=== PATIENT | male | born 1950 | race African-American/Black ===

== ENCOUNTER 2019-07-05 13:19 | Inpatient (IN) | payer OTHER, BC ==
[2019-07-05 06:59] VITALS: BMI 28.3
--- NOTE | 2019-07-05 08:00 | HP ---
Satellite [facility] - Chief Complaint Chief Complaint: left knee pain - Past Medical History Allergies/Adverse Reactions: Allergies Allergy/AdvReac Type Severity Reaction Status Date / Time No Known Drug Allergies Allergy Verified 07/05/19 06:52 - Current Medications Current Medications: Home Medications Medication Instructions Recorded Diltiazem HCl [Tiazac] 360 mg PO DAILY 02/27/14 Glipizide [Glucotrol] 5 mg PO BID 02/27/14 Losartan Potassium [Cozaar] 100 mg PO DAILY 02/27/14 metFORMIN HCL [Metformin ER 1,000 mg PO BID 02/27/14 Osmotic] Naproxen Sodium [Aleve] 2 tab PO DAILY 07/05/19 Satellite Physical Exam - Physical Examination Vital Signs: Vital Signs Period Temp Pulse Resp BP Sys/Thomas Pulse Ox Last 24 Hr 98.3 F 70 16 145/73 99-99 General Appearance: Well Nourished, Well Developed, Alert & Oriented x3 ENT: Clear Lung: Normal air movement Extremities: Other (left knee- + swelling, + ttp, decr rom, nvi, xrays show grade 4 tricompartmental djd) Neurological: Intact, Alert, Oriented Satellite Impression/Plan - Impression/Plan Impression: left knee djd Operative Procedure: left stephan tkr Date to be Performed: 07/05/19
--- NOTE | 2019-07-05 09:52 | OP ---
Operative Note - Note: Operative Date: 07/05/19 (josue) Pre-Operative Diagnosis: left knee djd Operation: left stephan tkr Post-Operative Diagnosis: Same as Pre-op Surgeon: Elian Viveros Compliance Auditor: Zheng Gardner Anesthesia: Spinal, Local Specimens Removed: bone fragments Estimated Blood Loss (mls): 100
[~2019-07-05 13:19] MED LIST: ACETAMINOPHEN 325 MG TABLET (FP) ONE; BUPIVACAINE LIPOSOME/PF (EXPAREL) 266 MG/20 ML VIAL ONE; CEFAZOLIN 3 GM in DEXTROSE 5%-WATER - 100 ML IVPB ONE; CELECOXIB 200 MG CAPSULE PO ONE; DILTIAZEM HCL 360 MG PO SCH; EPHEDRINE SULFATE/0.9% NACL/PF 50 MG/10 ML SYRINGE NR ONE; LACTATED RINGERS SOLUTION 1,000 ML IV SCH; LIDOCAINE HCL/PF 2% SDV 5ML VIAL ONE; LOSARTAN POTASSIUM 50 MG TABLET (FP) PO SCH; MAG HYDROX/AL HYDROX/SIMETH 30 ML UNIT-DOSE CUP PO PRN; MAGNESIUM HYDROX 2400MG/30ML ORAL SUSPENSION 30 ML CUP PO PRN; MIDAZOLAM HCL 2 MG/2 ML SINGLE DOSE VIAL ONE; MULTIVITAMINS (DAILY MVI) TABLET (FP) PO SCH; ONDANSETRON 4 MG/2 ML VIAL IVPUSH PRN; ONDANSETRON 4 MG/2 ML VIAL ONE; PANTOPRAZOLE 40 MG TABLET PO SCH; PROPOFOL 20 ML ONE; SENNOSIDES/DOCUSATE COMBO (SENNA PLUS) TABLET (UD) PO SCH; SODIUM CHLORIDE 0.9% P/F 10 ML VIAL IJ ONE; SUCCINYLCHOLINE CHLORIDE 200 MG/10 ML SYRINGE ONE; TRANEXAMIC ACID 1000 MG/10 ML VIAL IVPUSH ONE; TRANEXAMIC ACID 1000 MG/10 ML VIAL ONE; VANCOMYCIN 1,000 MG VIAL (RESTRICTED TO ID ONLY) IVPB ONE; VANCOMYCIN 1,000 MG VIAL (RESTRICTED TO ID ONLY) ONE; ceFAZolin SODIUM 1 GM VIAL ONE; oxyCODONE HCL 5 MG TABLET PO PRN
[2019-07-05] MEDS: ACETAMINOPHEN 325 MG TABLET (FP) PO SCH ×2 (13:27→17:11)
--- NOTE | 2019-07-05 13:34 | SPEC ---
DATE OF OPERATION: 07/05/2019 PREOPERATIVE DIAGNOSIS: Degenerative joint disease, left knee. POSTOPERATIVE DIAGNOSIS: Degenerative joint disease, left knee. PROCEDURE: Left total knee replacement with robotic-assisted navigation (Makoplasty). SURGICAL ATTENDING: Elian Viveros MD TEACHER CITIZENSHIP: [place] ANESTHESIA: Regional and spinal. CLOSURE: A Triathlon cemented knee system with a 5 femur, 6 tibia, 9 polyethylene, 38 patella, number 1 Vicryl fascia, 0 and 2-0 subcutaneous, 3-0 Monocryl subcuticular with skin glue, 4-0 undyed Vicryl for pin sites. ESTIMATED BLOOD LOSS: Negligible. COMPLICATIONS: None. CONDITION: To recovery room, stable. DESCRIPTION OF OPERATIVE PROCEDURE: Patient was taken to the operating room on July 05, 2019. Regional and general anesthesia was administered by the anesthesiologist. IV Kefzol and TXA were administered by the anesthesiologist. Well-padded pneumatic tourniquet was placed on the proximal thigh. The left lower extremity was prepped and draped in the usual sterile fashion. The leg was exsanguinated with an Esmarch bandage, and tourniquet was inflated to 275 mmHg. A 12 to 15-cm longitudinal midline incision was incised while centered over the patella. The dissection was carried down to the level of the extensor mechanism with sufficient flaps made to adequately perform the procedure. A medial parapatellar arthrotomy was then performed. We made a cuff of tissue on the patella for later closure. The patella was inverted, the knee was flexed up. The fat pad was excised. The subperiosteal dissection was on the anteromedial proximal tibia around towards the direction of the MCL. The ACL and the PCL were transected and debrided. The meniscal remnants of the medial and lateral meniscus were debrided and removed. This allowed the knee to be able to "be brought forward." The checkpoints were malleted into the tibia and into the femur. Two threaded pins were drilled anteroposteriorly proximal to the knee through the previous incision, through the anterior cortex, then just engaging the posterior cortex. To these pins was assembled the femoral navigation array. One handbreadth below the tibial tubercle, 2 stab incisions were used to drill 2 threaded pins in parallel fashion into the tibia, again through the anterior cortex and just engaging the posterior cortex. To these pins was fastened the tibial arrays. The knee was then registered with the navigation device with center of rotation of the hip, medial and lateral malleoli, both checkpoints, and multiple points on both the femur and the tibia to ensure excellent registration. The navigation device was directed off the "top of the bubbles" on both the femur and the tibia. The navigation passed within less than 0.5 mm to plan. The knee was then thoroughly inspected to remove all osteophytes both medially, laterally, and on the femur and the tibia, and whatever osteophytes were available for dissection. The knee was then taken to extension and to flexion and stressed in both varus and valgus to assess flexion gaps. The virtual position of the components on the navigation device were then manipulated to optimize the position and to ensure equal gaps in both flexion and extension, and both medially and laterally. The robot was then brought into the field and was registered. The cuts were then made both on the femur and on the tibia as to plan. All osteophytes posteriorly were then removed as well. The gaps were then measured again in flexion and extension to be equal in both flexion and extension and medial and laterally. The femoral notch was then made, as we were doing a posterior stabilizing component, with the appropriate sized box. Trial reduction of the femur achieved excellent [id number] fit. A tibial baseplate of appropriate polyethylene thickness was "floated in the knee." It was ensured to be in the excellent position by navigation devices and was pinned in place. The knee was taken through a range of motion and found to have excellent stability throughout flexion and extension. The patella was calibrated for thickness and osteotomized down to the appropriate level. The appropriate lollipop was used to drill the lug holes in the patella and the trial button was applied. The knee was taken through a range of motion and found to have excellent tracking of the patella, and patella from full extension to full flexion. Trial components were removed, the keel was punched and drilled, and a sclerotic bone on the tibia was drilled to help with cement interdigitation. The knee was thoroughly irrigated with the pulse antibiotic recreation engineer. The real components were then cemented in using monitored arrangement cement techniques with antibiotic cement, and pressurization and extension. After the cement was hardened, the knee was thoroughly inspected to remove any extra cement. The real polyethylene component was then clipped into place. Range of motion, stability, and tracking were as described earlier. The checkpoints and the pins were removed. The knee was thoroughly irrigated with antibiotic irrigation. Vancomycin powder was placed into the knee for antibiotic prophylaxis. The medial parapatellar arthrotomy was then closed using number 1 Vicryl interrupted suture. After closure of the deep layer, the knee was taken through a range of motion, and found to have excellent stability of the patella with no dislocation and no undue tension on the repair. The subcutaneous was pulse antibiotic irrigated, and was then closed with 2-0 Vicryl, 3-0 Monocryl subcuticular with the skin glue for the skin. The distal tibial pin site was irrigated thoroughly as well and then closed with 4-0 undyed Vicryl. A sterile Aquacel dressing was applied, followed by a Cardona dressing. Tourniquet was deflated. Total tourniquet time was approximately 75 minutes. No complications. Patient was awakened from anesthesia and transferred to recovery room in stable condition. Postoperative x-rays revealed excellent position of the components. Alberto [id number]
[2019-07-05] MEDS: oxyCODONE HCL 5 MG TABLET PO PRN ×2 (13:58→20:12)
[2019-07-05] MEDS ORDERED: ceFAZolin SODIUM 1 GM VIAL ONE ×2 (14:28→23:40)
[2019-07-05] MEDS ORDERED: DEXTROSE 5%-WATER 100 ML IVPB ONE ×2 (14:29→23:40)
[2019-07-05] MEDS: traMADol HCL 50 MG TABLET PO PRN ×2 (15:26→22:47)
[2019-07-05] MEDS: CEFAZOLIN 3 GM in DEXTROSE 5%-WATER 100 ML IVPB SCH ×2 (15:27→23:46)
[2019-07-05] MEDS: INSULIN SLIDING SCALE (NOVOLOG) 1 VIAL SQ SCH ×3 (16:01→21:48)
[2019-07-05] MEDS: glipiZIDE 5 MG TABLET (FP) PO SCH (17:10)
[2019-07-05] MEDS: MULTIVITAMINS (DAILY MVI) TABLET (FP) PO SCH (17:10)
[2019-07-05] MEDS: PANTOPRAZOLE 40 MG TABLET PO SCH (17:10)
[2019-07-05] MEDS: LOSARTAN POTASSIUM 50 MG TABLET (FP) PO SCH ×2 (17:11→17:35)
--- NOTE | 2019-07-05 17:37 | PN ---
Progress Note, Physician Chief Complaint: L knee Pain S/p L TKR History of Present Illness: Previous notes and events reviewed awake and alert NAD complain of pain to L knee POD #0 L TKR complain of suprapubic pain and difficulty urinating, bladder scan shows urine retention >400cc denies chest pain or SOB noted with elevated BP - Current Medication List Current Medications: Active Medications Acetaminophen (Tylenol -) 650 mg PO Q6H [facility] Stop: 07/08/19 11:59 Last Admin: 07/05/19 17:11 Dose: 650 mg Al Hydroxide/Mg Hydroxide (Mylanta Oral Suspension -) 30 ml PO Q4H PRN PRN Reason: DYSPEPSIA Aspirin (Asa -) 325 mg PO DAILY@0800 [facility] Diltiazem HCl (Cardizem Cd -) 360 mg PO DAILY [facility] Last Admin: 07/05/19 17:11 Dose: 360 mg Fentanyl (Sublimaze Injection -) 50 mcg IVPUSH [id number] PRN PRN Reason: PAIN-PACU ORDER X 4 DOSES ONLY Glipizide (Glucotrol -) 5 mg PO BIDI [facility] Last Admin: 07/05/19 17:10 Dose: 5 mg Cefazolin Sodium 3 gm/ (Dextrose) 100 mls @ 100 mls/hr IVPB Q8H [facility] Stop: 07/06/19 00:59 Last Admin: 07/05/19 15:27 Dose: 100 mls/hr Lactated Ringer's (Lactated Ringers Solution) 1,000 mls @ 125 mls/hr IV ASDIR [facility] Stop: 07/06/19 06:00 Last Admin: 07/05/19 12:21 Dose: 125 mls/hr Insulin Aspart (Novolog Vial Sliding Scale -) 1 vial SQ ACHS [facility]; Protocol Last Admin: 07/05/19 16:59 Dose: Not Given Losartan Potassium (Cozaar -) 100 mg PO DAILY [facility] Magnesium Hydroxide (Milk Of Magnesia -) 30 ml PO PRN PRN PRN Reason: CONSTIPATION Metformin HCl (Glucophage Xr -) 1,000 mg PO BIDI [facility] Last Admin: 07/05/19 17:10 Dose: 1,000 mg Multivitamins/Minerals/Vitamin C (Tab-A-Vit -) 1 tab PO DAILY [facility] Last Admin: 07/05/19 17:10 Dose: 1 tab Ondansetron HCl (Zofran Injection) 4 mg IVPUSH Q6H PRN PRN Reason: NAUSEA Oxycodone HCl (Roxicodone -) 5 mg PO Q3H PRN PRN Reason: PAIN LEVEL 4 - 6 Oxycodone HCl (Roxicodone -) 10 mg PO Q3H PRN PRN Reason: PAIN LEVEL 7 - 10 Last Admin: 07/05/19 13:58 Dose: 10 mg Pantoprazole Sodium (Protonix -) 40 mg PO DAILY [facility] Last Admin: 07/05/19 17:10 Dose: 40 mg Senna/Docusate Sodium (Pericolace -) 2 tablet PO BID [facility] Tramadol HCl (Ultram -) 50 mg PO Q3H PRN PRN Reason: PAIN LEVEL 1 - 3 Last Admin: 07/05/19 15:26 Dose: 50 mg - Objective Vital Signs: Vital Signs Temperature 97.7 F 07/05/19 17:02 Pulse Rate 74 07/05/19 17:02 Respiratory Rate 18 07/05/19 17:02 Blood Pressure 183/91 H 07/05/19 17:02 O2 Sat by Pulse Oximetry (%) 100 07/05/19 11:54 Constitutional: Yes: No Distress, Calm Eyes: Yes: Conjunctiva Clear HENT: Yes: Atraumatic Cardiovascular: Yes: Regular Rate and Rhythm Respiratory: Yes: Regular, CTA Bilaterally Gastrointestinal: Yes: Normal Bowel Sounds, Soft, Other (suprapubic tenderness) Musculoskeletal: Yes: Muscle Weakness Extremities: Yes: WNL Edema: No Wound/Incision: Yes: Dressing Dry and Intact (L knee) Neurological: Yes: Alert, Oriented Psychiatric: Yes: Alert, Oriented Problem List - Problems (1) HTN (hypertension) Assessment/Plan: -Cardizem, Losartan -low Na diet Code(s): I10 - ESSENTIAL (PRIMARY) HYPERTENSION (2) Status post left knee replacement Assessment/Plan: -Orthopedic on board -POD #0 L TKR -pain control -incentive spirometer -PT -SCDs -neurovascular checks q4h -Cefazolin Code(s): Z96.652 - PRESENCE OF LEFT ARTIFICIAL KNEE JOINT (3) Diabetes mellitus Assessment/Plan: -Metformin, Glucotrol -ISS -low Na/diabetic diet Code(s): E11.9 - TYPE 2 DIABETES MELLITUS WITHOUT COMPLICATIONS (4) Urine retention Assessment/Plan: -Bladder scan show urine retentio >400cc -Straight cath stat -bladder scan q8h, if >300cc straight cath -Urology consult Code(s): R33.9 - RETENTION OF URINE, UNSPECIFIED Assessment/Plan see problem list SCDs
[2019-07-05] MEDS: SENNOSIDES/DOCUSATE COMBO (SENNA PLUS) TABLET (UD) PO SCH (21:47)
[2019-07-06] MEDS: ACETAMINOPHEN 325 MG TABLET (FP) PO SCH ×3 (00:11→11:54)
[2019-07-06] MEDS: oxyCODONE HCL 5 MG TABLET PO PRN ×2 (03:12→09:00)
[2019-07-06] MEDS: glipiZIDE 5 MG TABLET (FP) PO SCH ×2 (06:08→16:35)
[2019-07-06] MEDS: traMADol HCL 50 MG TABLET PO PRN (06:13)
[2019-07-06] MEDS: INSULIN SLIDING SCALE (NOVOLOG) 1 VIAL SQ SCH ×4 (06:30→22:52)
[2019-07-06 07:45] LABS: HEMATOCRIT 36.8 % (35.4-49); HEMOGLOBIN 12.2 GM/dl (11.7-16.9); MCH 31.5 pg (25.7-33.7); MCHC 33.2 g/dl (32.0-35.9); MEAN CELL VOLUME 95.1 fl (80-96); MEAN PLT VOLUME 11.3 fl (7.5-11.1); PLATELET COUNT 127 K/MM3 (134-434); RBC 3.87 M/mm3 (4.00-5.60); WHITE BLOOD COUNT 8.6 K/mm3 (4.0-10.8)
[2019-07-06 07:49] LABS: ALBUMIN 3.4 g/dl (3.4-5.0); BILIRUBIN,TOTAL 0.8 mg/dl (0.2-1); CALCIUM 8.3 mg/dl (8.5-10); CREATININE 1.1 mg/dl (0.55-1.3); POTASSIUM 3.8 mmol/L (3.5-5.1)
[2019-07-06] MEDS: ASPIRIN 325 MG TABLET PO SCH (08:30)
[2019-07-06] MEDS: PANTOPRAZOLE 40 MG TABLET PO SCH (08:59)
[2019-07-06] MEDS: MULTIVITAMINS (DAILY MVI) TABLET (FP) PO SCH (08:59)
[2019-07-06] MEDS: SENNOSIDES/DOCUSATE COMBO (SENNA PLUS) TABLET (UD) PO SCH ×2 (08:59→21:24)
[2019-07-06] MEDS: LOSARTAN POTASSIUM 50 MG TABLET (FP) PO SCH (09:00)
--- NOTE | 2019-07-06 09:24 | PN ---
Progress Note (short form) - Note Progress Note: Ortho Pt seen and examined s/p left stephan tkr pod #1, needed straight cath Selected Entries 07/06/19 08:57 Temperature 98.3 F Pulse Rate 94 H Respiratory 18 Rate Blood Pressure 152/81 Laboratory Tests 07/06/19 07:10 WBC 8.6 Hgb 12.2 Hct 36.8 Plt Count 127 L dressing c/d/i, calf soft, nt rom 0-20, nvi a/p Monitor BP, urinary retention PT dvt ppx pain control d/c planning
--- NOTE | 2019-07-06 10:12 | PN ---
Progress Note, Physician Chief Complaint: AWAKE ALERT SEEN IN P.T. C/O NAUSEA AND FLATULENCE - Current Medication List Current Medications: Active Medications Acetaminophen (Tylenol -) 650 mg PO Q6H [facility] Stop: 07/08/19 11:59 Last Admin: 07/06/19 06:08 Dose: 650 mg Al Hydroxide/Mg Hydroxide (Mylanta Oral Suspension -) 30 ml PO Q4H PRN PRN Reason: DYSPEPSIA Aspirin (Asa -) 325 mg PO DAILY@0800 [facility] Last Admin: 07/06/19 08:30 Dose: 325 mg Diltiazem HCl (Cardizem Cd -) 360 mg PO DAILY [facility] Last Admin: 07/06/19 09:00 Dose: 360 mg Glipizide (Glucotrol -) 5 mg PO BIDI [facility] Last Admin: 07/06/19 06:08 Dose: 5 mg Sodium Chloride (Normal Saline -) 1,000 mls @ 83 mls/hr IV ASDIR [facility] Insulin Aspart (Novolog Vial Sliding Scale -) 1 vial SQ ACHS [facility]; Protocol Last Admin: 07/06/19 06:30 Dose: 6 units Losartan Potassium (Cozaar -) 100 mg PO DAILY [facility] Last Admin: 07/06/19 09:00 Dose: 100 mg Magnesium Hydroxide (Milk Of Magnesia -) 30 ml PO PRN PRN PRN Reason: CONSTIPATION Metformin HCl (Glucophage Xr -) 1,000 mg PO BIDI [facility] Last Admin: 07/06/19 06:08 Dose: 1,000 mg Multivitamins/Minerals/Vitamin C (Tab-A-Vit -) 1 tab PO DAILY [facility] Last Admin: 07/06/19 08:59 Dose: 1 tab Ondansetron HCl (Zofran Injection) 4 mg IVPUSH Q6H PRN PRN Reason: NAUSEA Ondansetron HCl (Zofran Odt -) 4 mg SL Q6H PRN PRN Reason: NAUSEA AND/OR VOMITING Oxycodone HCl (Roxicodone -) 5 mg PO Q3H PRN PRN Reason: PAIN LEVEL 4 - 6 Oxycodone HCl (Roxicodone -) 10 mg PO Q3H PRN PRN Reason: PAIN LEVEL 7 - 10 Last Admin: 07/06/19 09:00 Dose: 10 mg Pantoprazole Sodium (Protonix -) 40 mg PO DAILY [facility] Last Admin: 07/06/19 08:59 Dose: 40 mg Senna/Docusate Sodium (Pericolace -) 2 tablet PO BID [facility] Last Admin: 07/06/19 08:59 Dose: 2 tablet Tramadol HCl (Ultram -) 50 mg PO Q3H PRN PRN Reason: PAIN LEVEL 1 - 3 Last Admin: 07/06/19 06:13 Dose: 50 mg - Objective Vital Signs: Vital Signs Temperature 98.3 F 07/06/19 08:57 Pulse Rate 94 H 07/06/19 08:57 Respiratory Rate 18 07/06/19 09:00 Blood Pressure 152/81 07/06/19 08:57 O2 Sat by Pulse Oximetry (%) 97 07/06/19 09:00 Constitutional: Yes: Mild Distress Cardiovascular: Yes: Regular Rate and Rhythm Respiratory: Yes: WNL Gastrointestinal: Yes: Soft, Distention Genitourinary: Yes: WNL Musculoskeletal: Yes: Other Wound/Incision: Yes: Dressing Dry and Intact (LEF TTKR) Neurological: Yes: WNL ...Motor Strength: LLE Psychiatric: Yes: WNL Labs: CBC, BMP 07/06/19 07:10 07/06/19 07:10 Problem List - Problems (1) Nausea Code(s): R11.0 - NAUSEA (2) Hyponatremia Code(s): E87.1 - HYPO-OSMOLALITY AND HYPONATREMIA (3) Diabetes mellitus Code(s): E11.9 - TYPE 2 DIABETES MELLITUS WITHOUT COMPLICATIONS (4) HTN (hypertension) Code(s): I10 - ESSENTIAL (PRIMARY) HYPERTENSION (5) Status post left knee replacement Code(s): Z96.652 - PRESENCE OF LEFT ARTIFICIAL KNEE JOINT Assessment/Plan IV NS GENTLE ZOFRAN OTD OOB TO CHAIR MONITOR LABS PAIN CONTROL CLEARED FOR DISCHARGE MEDICAL POINT
[2019-07-06] MEDS ORDERED: SODIUM CHLORIDE 1,000 ML IV SCH (10:15)
[2019-07-06] MEDS ORDERED: PT OWN MED DRAWER 7, Y5N ONE (10:29)
[2019-07-06] MEDS: ONDANSETRON *ODT* 4 MG TABLET SL PRN (11:23)
--- NOTE | 2019-07-06 14:25 | PN ---
Progress Note (short form) - Note Progress Note: 69 yo M s/p TKR. c/o nausea and dec appetite. VSS. good result of anesthetic care. pt told to decrease pain med consumption and use more non narcotic drugs. attempt to increase PO intake. no anesthetic comps
[2019-07-07] MEDS: glipiZIDE 5 MG TABLET (FP) PO SCH (06:07)
[2019-07-07] MEDS: ACETAMINOPHEN 325 MG TABLET (FP) PO SCH ×4 (06:08→12:12)
[2019-07-07 07:34] LABS: HEMATOCRIT 31.6 % (35.4-49); HEMOGLOBIN 10.9 GM/dl (11.7-16.9); MCH 32.4 pg (25.7-33.7); MCHC 34.4 g/dl (32.0-35.9); MEAN CELL VOLUME 94.3 fl (80-96); MEAN PLT VOLUME 11.1 fl (7.5-11.1); PLATELET COUNT 110 K/MM3 (134-434); RBC 3.35 M/mm3 (4.00-5.60); RDW 12.3 % (11.9-15.9); WHITE BLOOD COUNT 9.3 K/mm3 (4.0-10.8)
[2019-07-07] MEDS: ASPIRIN 325 MG TABLET PO SCH (08:11)
[2019-07-07] MEDS: INSULIN SLIDING SCALE (NOVOLOG) 1 VIAL SQ SCH ×2 (08:13→12:10)
--- NOTE | 2019-07-07 08:27 | PN ---
Progress Note (short form) - Note Progress Note: Ortho Pt seen and examined s/p left stephan tkr pod #2, Improving BP decr, pt urinary retention has improved Selected Entries 07/07/19 06:00 Temperature 98.4 F Pulse Rate 85 Respiratory 18 Rate Blood Pressure 152/65 Laboratory Tests 07/07/19 06:36 WBC 9.3 Hgb 10.9 L Hct 31.6 L Plt Count 110 L dressing c/d/i, calf soft, nt rom 0-60, nvi a/p PT dvt ppx pain control d/c home today f/u in 1 week
--- NOTE | 2019-07-07 08:28 | DS ---
Physical Examination Vital Signs: Vital Signs Temperature 98.4 F 07/07/19 06:00 Pulse Rate 85 07/07/19 06:00 Respiratory Rate 18 07/07/19 06:00 Blood Pressure 152/65 07/07/19 06:00 O2 Sat by Pulse Oximetry (%) 96 07/07/19 06:00 Labs: CBC, BMP 07/07/19 06:36 07/06/19 07:10 Discharge Summary Problems reviewed: Yes Reason For Visit: osteoarthritis Current Active Problems Diabetes mellitus (Acute) HTN (hypertension) (Acute) Hyponatremia (Acute) Nausea (Acute) Status post left knee replacement (Acute) Urine retention (Acute) Procedures: Principal: right tkr Hospital Course: admitted for right stephan tkr, post-op per protocol, stable for d/c Condition: Good - Instructions Diet, Activity, Other Instructions: Post-op Instructions-Total Knee Replacement Call the office for a follow-up appointment in 1 week - [phone] Aspirin 325mg daily for 6 weeks. Pain medication was sent into your pharmacy. Apply Graduated Compression Stockings (TEDs) to both lower extremities- remove daily for hygiene ONLY Apply Sequential Compression Device (SCDs) to both Lower extremities remove for PT and hygiene ONLY Apply cold packs to affected area for 15 minutes every 2 hours. Physical Therapist will come to your home for the first 5 days. You will be set up with outpatient PT at your first post-operative visit. Patient may ambulate as tolerated-encourage self care (at least every 2-3 hours while awake) with walker or cane Maintain Aquacel (waterproof) dressing to operative wound (will be removed by surgeon at first office visit) Shower with Aquacel dressing in place-if Aquacel integrity compromised, remove and apply dry sterile dressing and notify Orthopedist. DO NOT SHOWER unless Orthopedists approves without Aquacel dressing CONTACT THE OFFICE FOR ANY CHANGE IN YOUR CONDITION (for example-fever greater than 102 degrees, excessive bleeding from operative site, purulent drainage, severe swelling or pain) GO TO THE EMERGENCY ROOM IF THERE IS A MEDICAL EMERGENCY Knee Precautions: * Keep a rolled towel under affected heel while in bed or chair (to keep knee in extension) * Keep affected leg elevated except during mealtimes * DO NOT PLACE PILLOW UNDER AFFECTED KNEE * If you have any questions, please do not hesitate to call the office - . Referrals: Elian Viveros MD [Staff Physician] - - Home Medications Comprehensive Discharge Medication List: Ambulatory Orders Diltiazem HCl [Tiazac] 360 mg PO DAILY 02/27/14 Glipizide [Glucotrol] 5 mg PO BID 02/27/14 Losartan Potassium [Cozaar] 100 mg PO DAILY 02/27/14 metFORMIN HCL [Metformin ER Osmotic] 1,000 mg PO BID 02/27/14 Aspirin [ASA -] 325 mg PO DAILY@0800 tablet 07/05/19 Naproxen Sodium [Aleve] 2 tab PO DAILY 07/05/19 Oxycodone HCl/Acetaminophen [Percocet 5-325 mg Tablet -] 1 - 2 tab PO Q6H #50 tab MDD 8 07/05/19
--- NOTE | 2019-07-07 08:36 | PN ---
Progress Note, Physician Chief Complaint: AWAKE ALERT , BEDSIDE READY TO USE TOILET FOR BM NO FEVER OR CHILLS - Current Medication List Current Medications: Active Medications Acetaminophen (Tylenol -) 650 mg PO Q6H [facility] Stop: 07/08/19 11:59 Last Admin: 07/07/19 06:08 Dose: 650 mg Al Hydroxide/Mg Hydroxide (Mylanta Oral Suspension -) 30 ml PO Q4H PRN PRN Reason: DYSPEPSIA Aspirin (Asa -) 325 mg PO DAILY@0800 [facility] Last Admin: 07/07/19 08:11 Dose: 325 mg Diltiazem HCl (Cardizem Cd -) 360 mg PO DAILY [facility] Last Admin: 07/06/19 09:00 Dose: 360 mg Glipizide (Glucotrol -) 5 mg PO BIDI [facility] Last Admin: 07/07/19 06:07 Dose: 5 mg Sodium Chloride (Normal Saline -) 1,000 mls @ 83 mls/hr IV ASDIR [facility] Last Admin: 07/06/19 11:00 Dose: 83 mls/hr Insulin Aspart (Novolog Vial Sliding Scale -) [facility] Protocol Last Admin: 07/07/19 08:13 Dose: Not Given Losartan Potassium (Cozaar -) 100 mg PO DAILY [facility] Last Admin: 07/06/19 09:00 Dose: 100 mg Magnesium Hydroxide (Milk Of Magnesia -) 30 ml PO PRN PRN PRN Reason: CONSTIPATION Metformin HCl (Glucophage Xr -) 1,000 mg PO BIDI [facility] Last Admin: 07/07/19 06:07 Dose: 1,000 mg Multivitamins/Minerals/Vitamin C (Tab-A-Vit -) 1 tab PO DAILY [facility] Last Admin: 07/06/19 08:59 Dose: 1 tab Ondansetron HCl (Zofran Injection) 4 mg IVPUSH Q6H PRN PRN Reason: NAUSEA Ondansetron HCl (Zofran Odt -) 4 mg SL Q6H PRN PRN Reason: NAUSEA AND/OR VOMITING Last Admin: 07/06/19 11:23 Dose: 4 mg Oxycodone HCl (Roxicodone -) 5 mg PO Q3H PRN PRN Reason: PAIN LEVEL 4 - 6 Oxycodone HCl (Roxicodone -) 10 mg PO Q3H PRN PRN Reason: PAIN LEVEL 7 - 10 Last Admin: 07/06/19 09:00 Dose: 10 mg Pantoprazole Sodium (Protonix -) 40 mg PO DAILY [facility] Last Admin: 07/06/19 08:59 Dose: 40 mg Senna/Docusate Sodium (Pericolace -) 2 tablet PO BID [facility] Last Admin: 07/06/19 21:24 Dose: 2 tablet Tramadol HCl (Ultram -) 50 mg PO Q3H PRN PRN Reason: PAIN LEVEL 1 - 3 Last Admin: 07/06/19 06:13 Dose: 50 mg - Objective Vital Signs: Vital Signs Temperature 98.4 F 07/07/19 06:00 Pulse Rate 85 07/07/19 06:00 Respiratory Rate 18 07/07/19 06:00 Blood Pressure 152/65 07/07/19 06:00 O2 Sat by Pulse Oximetry (%) 96 07/07/19 06:00 Constitutional: Yes: Mild Distress Cardiovascular: Yes: Regular Rate and Rhythm Respiratory: Yes: WNL Gastrointestinal: Yes: Soft Musculoskeletal: Yes: Other Edema: No Wound/Incision: Yes: Dressing Dry and Intact Neurological: Yes: WNL ...Motor Strength: LLE Psychiatric: Yes: WNL Labs: CBC, BMP 07/07/19 06:36 07/06/19 07:10 Problem List - Problems (1) Nausea Code(s): R11.0 - NAUSEA (2) Hyponatremia Code(s): E87.1 - HYPO-OSMOLALITY AND HYPONATREMIA (3) Diabetes mellitus Code(s): E11.9 - TYPE 2 DIABETES MELLITUS WITHOUT COMPLICATIONS (4) HTN (hypertension) Code(s): I10 - ESSENTIAL (PRIMARY) HYPERTENSION (5) Status post left knee replacement Code(s): Z96.652 - PRESENCE OF LEFT ARTIFICIAL KNEE JOINT Assessment/Plan MEDICALLY CLEARED FOR DISCHARGE DC PLANNING HOME HEALTH AID WITH PT F/U WITH YOUR PMD IN 2-3 DAYS FOR LABS
[2019-07-07] MEDS: oxyCODONE HCL 5 MG TABLET PO PRN (08:49)
[2019-07-07 08:55] VITALS: BP 132/54; PULSE 81; TEMP 97.9
[2019-07-07] MEDS: LOSARTAN POTASSIUM 50 MG TABLET (FP) PO SCH (10:14)
[2019-07-07] MEDS: SENNOSIDES/DOCUSATE COMBO (SENNA PLUS) TABLET (UD) PO SCH (10:14)
[2019-07-07] MEDS: PANTOPRAZOLE 40 MG TABLET PO SCH (10:15)
[2019-07-07] MEDS: MULTIVITAMINS (DAILY MVI) TABLET (FP) PO SCH (10:15)
[2019-07-07] MEDS: ONDANSETRON *ODT* 4 MG TABLET SL PRN (10:34)
--- NOTE | 2019-07-07 16:02 | PATH ---
Surgical Pathology Report Patient Name: RAYMOND RAMSEY Med. Rec. #: [id number] /Age/Gender: 1950 (Age: 69) / M Account: [id number] Location: [facility] MED-SURG Taken: 07/05/2019 Received: 07/05/2019 Reported: 07/07/2019 Physicians: Elian Viveros M.D. Specimen(s) Received LEFT KNEE BONES Clinical History Left knee osteoarthritis Final Diagnosis BONE, KNEE, LEFT, TOTAL KNEE REPLACEMENT MAKOPLASTY: BONE WITH DEGENERATIVE JOINT DISEASE AND REACTIVE SYNOVIUM. Electronically Signed Mar Marquis M.D. Gross Description Received in formalin labeled "left knee bone," is a 12.5 x 1.5 x 2.3 cm aggregate of multiple portions of bone and soft tissue. The tibial plateau measures 8.0 x 5.9 x 1.4 cm. There is a 1.4 cm in greatest dimension area of eburnation present. The remaining articular surfaces are frank-brown and diffusely granular. The underlying trabecular bone is yellow and hard. Automobile Appraiser sections are submitted in one cassette. /07/06/2019 [facility]07/06/2019
== END 2019-07-07 12:36 | disposition home or self-care (01) | DRG 470 ==
LOC: FM/S 13:19 → FASUSAT 13:19 → FM/S 18:56 → FASUSAT 07-06 15:13 → FM/S 07-06 15:14
PROVIDERS: ADMIT Orthopaedic Surgery; ATTEND Orthopaedic Surgery
PROC: 8E0Y0CZ Robotic Assisted Procedure of Lower Extremity, Open Approach (ICD-10-PCS; 2019-07-05)
PROC: 0SRD0J9 Replacement of Left Knee Joint with Synthetic Substitute, Cemented, Open Approach (ICD-10-PCS; principal; 2019-07-05 08:29)
DX: M17.12 Unilateral primary osteoarthritis, left knee (principal); E87.1 Hypo-osmolality and hyponatremia; R11.0 Nausea; E11.9 Type 2 diabetes mellitus without complications; I10 Essential (primary) hypertension; R33.9 Retention of urine, unspecified
CPT/HCPCS: 36415; 73560-TC-LT-FY; 80053; 81003; 81015; 82962; 85027; 94760; 97116-GP; 97162-GP; J7030; Q0162